=== PATIENT | male | born 1980 | race Hispanic/Latino ===

== ENCOUNTER 2017-03-25 06:16 | Day surgery (SDC) | payer OTHER ==
[2017-03-24 12:48] VITALS: BP 123/71
[2017-03-24 13:08] LABS: BASOPHILS % (AUTO) 0.7 % (0.0-5.0); EOSINOPHILS % (AUTO) 5.3 % (0.0-8.0); LYMPHOCYTES % (AUTO) 20.1 % (21.0-51.0); MEAN CORPUSCULAR HEMOGLOBIN 31.6 pg (27.0-33.0); MEAN CORPUSCULAR HGB CONC 35.4 g/dL (32.0-36.0); MEAN CORPUSCULAR VOLUME 89.3 fL (79-99); NEUTROPHILS % (AUTO) 64.9 % (40.0-77.0); PLATELET COUNT (AUTO) 216 K/uL (130-400); RED CELL DISTRIBUTION WIDTH 12.9 % (11.0-15.5); WHITE BLOOD COUNT (AUTO) 10.5 K/uL (4.8-10.8)
[2017-03-24 13:18] LABS: CREATININE 0.9 mg/dL (0.5-1.5); POTASSIUM 3.7 mmol/L (3.5-5.1)
[~2017-03-25] VITALS: Ht 167.6 cm; Wt 137.9 kg
[2017-03-25] VITALS (20 sets, daily range): BP systolic 78–123; BP diastolic 35–78
[~2017-03-25 06:16] MED LIST: CEFAZOLIN 3GM /D5W 100ML 100 ML IV SCH; LOSA50TA37 PO
[2017-03-25] MEDS ORDERED: CEFAZOLIN SODIUM 1 GM VIAL ONE ×2 (07:21→12:16)
[2017-03-25] MEDS ORDERED: LACTATED RINGERS 1000ML 1,000 ML IV ONE (07:22)
[2017-03-25] MEDS ORDERED: DEXAMETHASONE SOD PHOSPHATE 10MG/ML 1ML VIAL ONE (08:15)
[2017-03-25] MEDS ORDERED: FENTANYL CITRATE PF 50 MCG/1 ML 2ML VIAL ONE ×2 (08:15→08:54)
[2017-03-25] MEDS ORDERED: GLYCOPYRROLATE 0.2 MG/ML 5 ML VIAL ONE (08:15)
[2017-03-25] MEDS ORDERED: ONDANSETRON HCL 4 MG/2 ML VIAL ONE (08:15)
[2017-03-25] MEDS ORDERED: MIDAZOLAM HCL 1 MG/ML 2ML VIAL ONE (08:15)
[2017-03-25] MEDS ORDERED: PROPOFOL 10 MG/ML 20ML VIAL IV ONE ×2 (08:15→08:54)
[2017-03-25] MEDS ORDERED: WATER FOR INJECTION,STERILE 20 ML VIAL ONE (12:17)
== END 2017-03-25 12:20 | disposition home or self-care (01) ==
LOC: DAH 06:16
PROVIDERS: ATTEND Orthopaedic Surgery
DX: M94.261 Chondromalacia, right knee (principal); I10 Essential (primary) hypertension; E66.01 Morbid (severe) obesity due to excess calories; Z68.42 Body mass index [BMI] 45.0-49.9, adult; Z83.3 Family history of diabetes mellitus; Z82.49 Family history of ischemic heart disease and other diseases of the circulatory system; Z82.3 Family history of stroke
CPT/HCPCS: 29877; 36415; 80048; 85025; A4606; A4649; A4930; A6223; J0690; J1100; J2250; J2405; J2704 ×2; J3010; J3490; J7120